=== PATIENT | male | born 1950 | race Caucasian/White ===

== ENCOUNTER 2017-09-29 13:40 | Emergency (ER) | payer MEDICARE, OTHER ==
[~2017-09-29] VITALS: Ht 180.3 cm; Wt 91.8 kg
[~2017-09-29 13:40] MED LIST: ALPR1TAB7 PO; CLON2TAB10 PO; HYDR-3972; LEVO75TA7 PO
[2017-09-29] MEDS ORDERED: ketorolac trometh. 30mg/ml inj. IM ONE (17:10)
[2017-09-29] MEDS ORDERED: cyclobenzaprine 10mg tablet PO ONE (17:10)
[2017-09-29] MEDS ORDERED: CYCL-1 PO (17:11)
[2017-09-29] MEDS ORDERED: NAPR-56 PO (17:11)
[2017-09-29 17:58] VITALS: BP 154/74
== END 2017-09-29 18:02 | disposition home or self-care (01) ==
LOC: ER 13:41
DX: S23.41XA Sprain of ribs, initial encounter (principal); T23.251A Burn of second degree of right palm, initial encounter; Z87.891 Personal history of nicotine dependence; X17.XXXA Contact with hot engines, machinery and tools, initial encounter; Y93.89 Activity, other specified; Y92.481 Parking lot as the place of occurrence of the external cause; Y99.8 Other external cause status
CPT/HCPCS: 71046; 96372; 99284; J1885

== ENCOUNTER 2018-06-07 21:34 | Emergency (ER) | payer OTHER, MEDICARE ==
[~2018-06-07] VITALS: Ht 177.8 cm; Wt 97.2 kg
[~2018-06-07 21:34] MED LIST changes: -CLON2TAB10 PO; +CYCL-1 PO; -LEVO75TA7 PO
[2018-06-07 21:46] VITALS: BP 173/83
[2018-06-07] MEDS ORDERED: baclofen 10mg tablet PO PRN (22:20)
[2018-06-07] MEDS ORDERED: ketorolac tromethamine 15mg/ml inj. IM ONE (22:20)
[2018-06-07] MEDS ORDERED: LIDOcaine 5% patch TP STA (22:56)
[2018-06-07] MEDS ORDERED: IBUP-1984 PO (22:58)
--- NOTE | 2018-06-07 23:43 | NUR ---
PATIENT STATES HE DOES NOT KNOW WHAT HAPPENED TODAY TO MAKE HIS RIGHT LOWER BACK HURT. PATIENT WAS WORKED UP FOR BACK PAIN IN AUGUST 2017 BY CESAR ZURITA: MRI, CONSULTED WITH DR UGALDE, DID PHYSICAL THERAPY. PATIENT TOOK TWO [employer]ESSION[employer]
== END 2018-06-08 | disposition home or self-care (01) ==
LOC: ER 21:34
DX: T14.8XXA Other injury of unspecified body region, initial encounter (principal); Z98.890 Other specified postprocedural states; Z79.899 Other long term (current) drug therapy; X58.XXXA Exposure to other specified factors, initial encounter; Y93.89 Activity, other specified; Y92.89 Other specified places as the place of occurrence of the external cause; Y99.8 Other external cause status
CPT/HCPCS: 96372; 99283; J1885

== ENCOUNTER 2024-10-12 11:09 | Outpatient (CLI) | payer MEDICARE, MEDICAID ==
--- NOTE | 2024-10-12 14:09 | RADIOLOGY REPORT ---
CLINICAL INDICATION: COMPLETE ROTATR-CUFF TEAR/RUPTR OF R SHOULDER, NOT TRAUMA COMPARISON: None TECHNIQUE: Multiplanar, multisequence MRI of the right shoulder was performed without contrast. Contrast: None FINDINGS: Glenohumeral joint: There is no fracture or bone marrow edema. Alignment is maintained. There is c hondral thinning in the humeral head with a subchondral cysts in the posterior aspect of the humeral head. No full-thickness chondral defect noted.. There is no joint effusion or synovitis. Acromioclavicular joint: The acromioclavicular joint is narrowed with capsular hypertrophy. Type 1 a cromion. Rotator cuff and bursae: There is supraspinatus tendinosis and a focal full-thickness tear. There is infraspinatus tendinosis and interstitial tear. Subscapularis tendinosis is noted. Teres minor tend on is intact. There is no regional muscle atrophy. Mild T2 hyperintensity in the subacromial subde ltoid bursa without scarlett fluid distention. Biceps tendon and glenoid labrum: The long head biceps tendon is located within the bicipital groove and intact. There is a tear of the anterior superior labrum. IMPRESSION: 1. Supraspinatus tendinosis and focal full-thickness tear. 2. Infraspinatus tendinosis and interstitial tear. 3. AC joint capsular hypertrophy. 4. Tear of the anterior superior labrum. 5. Mild degenerative changes in the glenohumeral joint.
== END 2024-10-12 23:59 | disposition home or self-care (01) ==
LOC: MRI02 11:09
PROVIDERS: ATTEND Family Medicine
DX: S43.431A Superior glenoid labrum lesion of right shoulder, initial encounter (principal); M75.121 Complete rotator cuff tear or rupture of right shoulder, not specified as traumatic; M19.011 Primary osteoarthritis, right shoulder; X58.XXXA Exposure to other specified factors, initial encounter; Y93.89 Activity, other specified; Y92.89 Other specified places as the place of occurrence of the external cause; Y99.8 Other external cause status
CPT/HCPCS: 73221